=== PATIENT | male | born 1985 | race Caucasian/White ===

== ENCOUNTER 2016-05-02 23:30 | Emergency (ER) | payer OTHER ==
[2016-05-02] MEDS ORDERED: SUBOXONE 8 MG-1 EAC1 SL (23:45)
[2016-05-03 00:22] LABS: URINE APPEARANCE CLEAR; URINE BILIRUBIN NEG (NEG); URINE BLOOD NEG (NEG); URINE COLOR YELLOW; URINE GLUCOSE NEG (NORM); URINE KETONE NEG (NEG); URINE LEUKOCYTE ESTERASE NEG (NEG); URINE NITRATE NEG (NEG); URINE PROTEIN TRACE (NEG); URINE SOURCE CLEAN CATCH; URINE SPECIFIC GRAVITY >=1.030 (1.003-1.035); URINE UROBILINOGEN 0.2 MG/DL (NORM)
[2016-05-03 00:24] LABS: MICRO INDICATED? NO
[2016-05-05 15:05] LABS: CHLAMYDIA TRACH Not Detected (Not Detected); N GONOR Not Detected (Not Detected)
== END 2016-05-03 01:19 | disposition home or self-care (01) ==
LOC: SED 23:30
PROVIDERS: Emergency Medicine
DX: N45.1 Epididymitis (principal)
CPT/HCPCS: 81003; 87491; 87591; 99282

== ENCOUNTER 2016-05-16 20:04 | Emergency (ER) | payer OTHER ==
[~2016-05-16 20:04] MED LIST: SUBOXONE 8 MG-1 EAC1 SL
== END 2016-05-16 20:51 | disposition home or self-care (01) ==
LOC: SED 20:04
DX: S81.812A Laceration without foreign body, left lower leg, initial encounter (principal); W27.8XXA Contact with other nonpowered hand tool, initial encounter; Y92.69 Other specified industrial and construction area as the place of occurrence of the external cause
CPT/HCPCS: 12002; 99283

== ENCOUNTER 2016-06-05 18:14 | Emergency (ER) | payer SELFPAY | END 2016-06-05 18:20 | disposition home or self-care (01) | LOC: SED 18:14 | DX: B71.9 Cestode infection, unspecified (principal) | CPT/HCPCS: 99282 ==

== ENCOUNTER 2016-07-31 01:09 | Emergency (ER) | payer SELFPAY ==
[2016-07-31] MEDS ORDERED: SUBOXONE 12 MG1 EACH (01:19)
[2016-07-31 02:21] LABS: URINE SOURCE CLEAN CATCH
[2016-07-31 02:23] LABS: URINE APPEARANCE CLEAR; URINE BLOOD NEG (NEG); URINE COLOR YELLOW; URINE GLUCOSE NEG (NORM); URINE KETONE TRACE (NEG); URINE LEUKOCYTE ESTERASE NEG (NEG); URINE NITRATE NEG (NEG); URINE PH 5.5 (5-8); URINE PROTEIN TRACE (NEG); URINE SPECIFIC GRAVITY >=1.030 (1.003-1.035)
[2016-07-31 02:24] LABS: MICRO INDICATED? NO; URINE BILIRUBIN NEG (NEG)
[2016-07-31 02:25] LABS: CALCIUM SERUM 8.7 mg/dL (8.4-10.2); GLOM FILT RATE Estimated 101.3 mL/min (>60); POTASSIUM 3.5 mmol/L (3.5-5.1)
== END 2016-07-31 04:10 | disposition home or self-care (01) ==
LOC: SED 01:09
PROVIDERS: Emergency Medicine
DX: T67.5XXA Heat exhaustion, unspecified, initial encounter (principal); X58.XXXA Exposure to other specified factors, initial encounter; Y92.9 Unspecified place or not applicable
CPT/HCPCS: 36415; 80048; 81003; 96360; 96361; 99284

== ENCOUNTER 2016-11-01 11:47 | Emergency (ER) | payer SELFPAY ==
[~2016-11-01] VITALS: Ht 177.8 cm; Wt 81.6 kg
--- NOTE | ~2016-11-01 | CT2 ---
[facility] A Service of [facility] RADIOLOGY TEXT RESULTS PATIENT: NICHOLE PATTERSON LOCATION: SED : [birth year] UNIT #: [id number] AGE: [address]: Isaiah Frey MD SEX: M ORDER DR: [id number] [place] [id number] MR#: [id number] Acc #: [id number] NAME: NICHOLE PATTERSON : 1985 SEX: M STUDY DATE/TIME: 11/01/2016 15:44 UNIT: SED ROOM: STUDY DESCRIPTION: CT Abd and Pelv W Cont Attending Physician: Isaiah Frey M.D. Ordering Physician: Isaiah Frey M.D. Primary Care Physician: Primary Care Physician No MEDICAL IMAGING REPORT This report is preliminary unless electronic signature is present. EXAM CT abdomen and pelvis with contrast INDICTIONS Left testicular swelling for three days. Feels like bladder is full. The patient had a scrotal ultrasound earlier today. Axial 5 mm were obtained of the abdomen and pelvis with IV contrast. The patient was given 100 mL of Isovue 370. Sagittal and coronal reconstructions were generated. The CT exam was performed with one or more of the following radiation dose reduction techniques: automatic exposure control, adjustment of mA and/or kV according to patient size, and iterative reconstruction. FINDINGS The lung bases are clear. The liver, gallbladder, spleen, pancreas, adrenal glands and kidneys are normal in appearance. The aorta is normal in size and there is no adenopathy. The study is slightly limited by motion. The bowel appears normal. The bladder and prostate gland are normal. The very top of the scrotum is visualized and there are some enhancing structures on the left side consistent with epididymitis. Please see the ultrasound report. The bones are unremarkable. IMPRESSION 1. The very top of the scrotum is imaged and enhancing structures are visualized consistent with epididymitis suggested on the scrotal ultrasound. Otherwise the study is normal. Dictated by... [facility] A Service [facility] RADIOLOGY TEXT RESULTS PATIENT: NICHOLE PATTERSON LOCATION: SED : [birth year] UNIT #: [id number] AGE: [address]: Isaiah Frey MD SEX: M ORDER DR: Isaiah Nicholas M.D. THIS IS AN ELECTRONICALLY VERIFIED REPORT Isaiah Nicholas M.D. at 11/02/2016 12:33 PM LESLIE/jatinder TD: 11/02/2016 08:27 JOB #: [id number] MEDICAL IMAGING REPORT Page 1 of 1
--- NOTE | ~2016-11-01 | US115 ---
[facility] A Service of [facility] RADIOLOGY TEXT RESULTS PATIENT: NICHOLE PATTERSON LOCATION: SED : [birth year] UNIT #: [id number] AGE: [address]: Isaiah Frey MD SEX: M ORDER DR: [id number] [place] [id number] MR#: [id number] Acc #: [id number] NAME: NICHOLE PATTERSON : 1985 SEX: M STUDY DATE/TIME: 11/01/2016 14:29 UNIT: SED ROOM: STUDY DESCRIPTION: US Scrotum and Contents Attending Physician: Isaiah Frey M.D. Ordering Physician: Isaiah Frey M.D. Primary Care Physician: No Primary Care Physician MEDICAL IMAGING REPORT This report is preliminary unless electronic signature is present. EXAM Normal scrotal ultrasound with Doppler. HISTORY Left testicle lump for 5 days. Left testicle pain and swelling for 3 days. TECHNIQUE Ultrasound examination of scrotum testes was performed with Singleton-scale and Doppler. FINDINGS The left epididymis is enlarged and hypervascular, suggesting left epididymitis. No testicular mass or enlargement. Normal blood flow to both testes on color Doppler. Small left hydrocele. Minimal right hydrocele. The right epididymis is normal. IMPRESSION 1. Findings are characteristic of left epididymitis. The left epididymis is enlarged and hypervascular. Small left hydrocele. 2. No testicular mass or enlargement. Normal blood flow to both testes on color Doppler. Dictated by... Celso Huang M.D. THIS IS AN ELECTRONICALLY VERIFIED REPORT Celso Huang M.D. at 11/02/2016 11:33 PM DFL/berna TD: 11/02/2016 06:53 JOB #: [id number] [facility] A Service of [facility] RADIOLOGY TEXT RESULTS PATIENT: NICHOLE PATTERSON LOCATION: SED : [birth year] UNIT #: [id number] AGE: [address]: Isaiah Frey MD SEX: M ORDER DR: MEDICAL IMAGING REPORT Page 1 of 1
[~2016-11-01 11:47] MED LIST changes: +SUBOXONE 12 MG1 EACH
[2016-11-01 14:25] LABS: BASOPHIL% 0.2 % (0-2.5); EOSINOPHIL% 0.3 % (0.0-7.0); HEMATOCRIT 38.7 % (38.0-50.0); LYMPHOCYTE# 0.7 X10e3 (1.0-3.5); LYMPHOCYTE% 4.8 % (17.0-45.0); MEAN CELL VOLUME 88.3 FL (83-96); MEAN CORPUSCULAR HEMOGLOBIN 29.7 PG (28-34); MEAN CORPUSCULAR HGB CONC 33.6 g/dL (30-36); MEAN PLATELET VOLUME 7.1 FL (6.5-11.5); MONOCYTE# 0.6 X10e3 (0-1.0); MONOCYTE% 3.9 % (3.0-12.0); NEUTROPHIL# 13.5 X10e3 (1.5-7.1); NEUTROPHIL% 90.8 % (40-75); PLATELET COUNT 291 X10e3 (140-420); RED BLOOD COUNT 4.38 X10e (3.90-5.60); RED CELL DISTRIBUTION WIDTH 12.8 % (11.0-15.5); WHITE BLOOD COUNT 14.8 X10e3 (4.0-10.5)
[2016-11-01 14:30] LABS: DIFF IND NO
[2016-11-01 14:43] LABS: ALBUMIN SERUM 4.2 g/dL (3.5-5.0); BILIRUBIN, DIRECT 0.2 mg/dL (0.0-0.2); BILIRUBIN,INDIRECT 1.4 mg/dL (0.0-0.9); BILIRUBIN,TOTAL 1.6 mg/dL (0.2-2.0); BUN/CREATININE RATIO 22.85; CALCIUM SERUM 9.2 mg/dL (8.4-10.2); CREATININE SERUM 0.7 mg/dL (0.6-1.4); GLOM FILT RATE Estimated 127.6 mL/min (>60); POTASSIUM 3.6 mmol/L (3.5-5.1)
[2016-11-01 16:10] LABS: URINE SOURCE CLEAN CATCH
[2016-11-01 16:12] LABS: URINE APPEARANCE CLEAR; URINE BILIRUBIN NEG (NEG); URINE BLOOD NEG (NEG); URINE COLOR YELLOW; URINE GLUCOSE NEG (NORM); URINE KETONE NEG (NEG); URINE LEUKOCYTE ESTERASE NEG (NEG); URINE NITRATE NEG (NEG); URINE PROTEIN NEG (NEG); URINE SPECIFIC GRAVITY 1.015 (1.003-1.035); URINE UROBILINOGEN 0.2 MG/DL (NORM)
[2016-11-01 16:18] LABS: MICRO INDICATED? NO
== END 2016-11-01 16:55 | disposition home or self-care (01) ==
LOC: SED 11:47
PROVIDERS: Emergency Medicine
DX: N45.1 Epididymitis (principal); N43.3 Hydrocele, unspecified; Z79.899 Other long term (current) drug therapy
CPT/HCPCS: 36415; 74177; 76870; 80048; 80076; 81003; 83605; 85025; 96372; 96374; 99284; J0696; Q9967